=== PATIENT | male | born 1960 | race Caucasian/White ===

== ENCOUNTER 2024-11-28 06:20 | Day surgery (SDC) | payer OTHER, SELFPAY ==
[2024-11-28] VITALS (9 sets, daily range): BP systolic 118–153; BP diastolic 83–106; BMI 30.2
[2024-11-28] MEDS: NORMOSOL-R/PLASMALYTE-A 1000 IV (09:07)
[2024-11-28] MEDS: DILAUDID 0.5 MG IV ×2 (10:57→11:19)
[2024-11-28] MEDS: ROXICODONE 5 MG PO (12:00)
== END 2024-11-28 12:30 | disposition home or self-care (01) ==
LOC: SDS 06:20
PROVIDERS: ATTENDING PHYSICIAN Otolaryngology
DX: C32.0 Malignant neoplasm of glottis (principal)
CPT/HCPCS: 31536; 88305